=== PATIENT | male | born 1995 | race Caucasian/White ===

== ENCOUNTER 2019-02-20 21:38 | Emergency (ER) | payer MEDICAID ==
[~2019-02-20] VITALS: Ht 198.1 cm; Wt 87.1 kg
[2019-02-20 21:43] VITALS: BP_SYST 111
[2019-02-20] MEDS ORDERED: NACL 0.9% 1,000 ML IV ONE (22:00)
[2019-02-20 22:19] LABS: HEMATOCRIT 37.6 % (36-54); HEMOGLOBIN 12.3 g/dL (14.0-18.0); MEAN CORPUSCULAR HEMOGLOBIN 27 pg (27-31); MEAN CORPUSCULAR HGB CONC 33 % (32-36); MEAN CORPUSCULAR VOLUME 83 fL (79.0-98.0); PLATELET COUNT (AUTO) 529 K/uL (130-430); RED BLOOD CELL COUNT(AUTO) 4.53 MIL/uL (4.2-6.2); RED CELL DISTRIBUTION WIDTH 22.1 % (9.0-15.0); WHITE BLOOD COUNT (AUTO) 16.6 K/uL (4.8-10.8)
[2019-02-20 23:07] LABS: BAND % (MANUAL) 1 % (0-6); LYMPHOCYTES % (MANUAL) 13 % (20-46)
[2019-02-20 23:08] LABS: ATYPICAL LYMPHOCYTES % 0 % (0-0); BASOPHILS % (MANUAL) 0 % (0-2); EOSINOPHILS % (MANUAL) 0 % (0-7); METAMYELOCYTES % 1 % (0-0); MONOCYTES % (MANUAL) 10 % (0-11); MYELOCYTES % 1 % (0-0)
[2019-02-20 23:22] LABS: CALCIUM 8.6 mg/dL (8.4-11.0); CREATININE 0.76 mg/dL (0.55-1.30); POTASSIUM 3.5 mmol/L (3.5-5.1)
[2019-02-20 23:28] LABS: ALBUMIN 2.5 g/dL (3.4-4.8); TOTAL BILIRUBIN 0.5 mg/dL (0.0-1.0)
[2019-02-20 23:56] VITALS: BP_SYST 121
== END 2019-02-20 23:56 | disposition home or self-care (01) ==
LOC: SED 21:38
DX: R55 Syncope and collapse (principal)
CPT/HCPCS: 36415; 70450; 80053; 82962; 85007; 85027; 93005; 96360; 99284; J7030